=== PATIENT | female | born 1950 | race Caucasian/White ===

== ENCOUNTER 2019-02-08 20:45 | Inpatient (IN) | payer OTHER ==
[~2019-02-08] VITALS: Ht 167.6 cm; Wt 82.0 kg
[~2019-02-08 20:45] MED LIST: ATEN-60 PO; LISI40TA PO; NIFE30TA70 PO; SIMV-8 PO
[2019-02-08] MEDS ORDERED: ONDANSETRON HCL 4 MG/2 ML VIAL IV ONE (21:00)
[2019-02-08] MEDS ORDERED: MORPHINE SULFATE 4 MG/ML SYR/VIAL IV ONE ×2 (21:00→23:00)
[2019-02-08 21:33] LABS: Basophils # (auto) 0.1 uL; Basophils % (auto) 0.8 % (0.0-2.0); Eosinophils # (auto) 0.2 uL; Eosinophils % (auto) 2.2 % (0.0-7.0); Hematocrit 48.9 % (36.0-46.0); Hemoglobin 16.9 g/dL (12.2-16.2); Lymphocytes # (auto) 3.5 uL; Lymphocytes % (auto) 45.7 % (10.0-50.0); Mean Corpuscular Hemoglobin 31.7 pg (28.0-32.0); Mean Corpuscular Hgb Conc. 34.5 g/dL (32.0-36.0); Mean Corpuscular Volume 91.9 fL (80.0-100.0); Monocytes # (auto) 0.4 uL; Monocytes % (auto) 5.6 % (0.0-12.0); Neutrophils # (auto) 3.5 uL; Neutrophils % (auto) 45.7 % (37.0-80.0); Nucleated Red Blood Cells % 0.1 %; Platelet Count (auto) 255 10^3/uL (140-450); Red Blood Cells 5.32 10^6/uL (4.0-5.20); Red Cell Distribution Width 12.9 % (11.8-14.3); White Blood Cell 7.7 10^3/uL (4.4-10.8)
[2019-02-08 21:37] LABS: Albumin 4.4 g/dL (3.4-5.0); BUN/Creatinine Ratio 18.3; Calcium 8.7 mg/dL (8.5-10.1); Potassium 3.2 mmol/L (3.5-5.1)
[2019-02-08 21:42] LABS: Bilirubin, Total 0.5 mg/dL (0.2-1.0); Total Protein 8.4 g/dL (6.4-8.2)
[2019-02-08 21:49] LABS: INR < 0.93 (0.9-1.15); Partial Thromboplastin Time 29.1 sec (23.64-32.05)
[2019-02-08] MEDS ORDERED: NITROGLYCERIN 2% OINT 1GM PKG TD ONE (23:00)
[2019-02-09] VITALS (57 sets, daily range): BP systolic 95–171; BP diastolic 51–92
[2019-02-09] MEDS ORDERED: HEPARIN SODIUM (PORCINE) 5000 UNITS/ML 1ML VIAL IV ONE (01:00)
[2019-02-09] MEDS: HEPARIN DRIP/D5W 100UNITS/ML 250 ML IV SCH (01:29)
[2019-02-09] MEDS ORDERED: DOCUSATE SOD 100 MG CAP PO PRN (01:45)
[2019-02-09] MEDS ORDERED: MORPHINE SULF INJ 2 MG/ML SYRINGE 1ML IV PRN (01:45)
[2019-02-09] MEDS ORDERED: TEMAZEPAM 15 MG CAP PO PRN (01:45)
[2019-02-09] MEDS ORDERED: ONDANSETRON HCL 4 MG/2 ML VIAL IV PRN (01:45)
[2019-02-09 02:09] LABS: BUN/Creatinine Ratio 16.9; Calcium 8.2 mg/dL (8.5-10.1); Potassium 3.5 mmol/L (3.5-5.1)
[2019-02-09] MEDS ORDERED: SODIUM CHLORIDE 0.9% 250 ML IV ONE (02:15)
[2019-02-09] MEDS: SODIUM CHLORIDE 0.9% 1,000 ML IV SCH ×2 (04:27→11:02)
--- NOTE | 2019-02-09 05:12 | NUR ---
REPORT RECEIVED FROM TANIYA CHAVEZ
--- NOTE | 2019-02-09 05:20 | NUR ---
Pt being admitted to ICU MARCIA ZENG admitted to ICU via gurney on nuclear monitoring technician, and portable 02. Patient transferred to bed, connected to ICU monitoring and oxygen, and weighed by bedscale. Patient oriented to Capri Collazo, primary RN, unit, room, bed, and unit policies regarding patient care and visiting hours. All questions and concerns addressed, patient verbalized understanding. NOTE: Patient is on heparin drip @ 6.79 ml/hr infusing in the right AC and NS @ 100ml/hr infusing in the left AC. With intact skin, chest pain scale 3/10 noted as verbalized, nitro patch in the right upper chest noted.VS stable, BP 124/66, HR 63, R 17, SPO2 92%, T 97.6.
--- NOTE | 2019-02-09 05:50 | NUR ---
AMBULATED TO THE TOILET FOR VOIDING. NO DISTRESS OR PAIN NOTED.
--- NOTE | 2019-02-09 06:00 | NUR ---
MRSA SWAB IN THE NARES DONE AND SENT TO LAB
[2019-02-09] MEDS ORDERED: CHOL20007 PO (06:44)
[2019-02-09] MEDS ORDERED: POTA10TA51 PO (06:44)
[2019-02-09] MEDS ORDERED: HYDR-4833 PO (06:44)
[2019-02-09] MEDS ORDERED: LORA-655 PO (06:44)
[2019-02-09] MEDS ORDERED: CALC667C PO (06:44)
[2019-02-09] MEDS ORDERED: ASCOCRY2 OR (06:44)
[2019-02-09] MEDS ORDERED: MAGN400T5 PO (06:44)
[2019-02-09] MEDS ORDERED: AMLO5TAB15 PO (06:44)
[2019-02-09] MEDS ORDERED: ASCO500T11 PO (06:52)
[2019-02-09 07:02] LABS: Urine Bacteria NONE SEEN /hpf (None Seen); Urine Blood Negative /uL (Negative); Urine Specific Gravity 1.013 (1.001-1.035); Urine WBC 4 /hpf (0 - 5)
--- NOTE | 2019-02-09 07:15 | NUR ---
CLOSING NOTES RESTING ON BED WITH NO SIGNS OF DISTRESS. REPORT GIVEN TO COURTNEY CHAVEZ.
--- NOTE | 2019-02-09 07:30 | NUR ---
REPORT REPORT RECEIVED FROM REINIER TYLER RN.
[2019-02-09 07:35] LABS: Basophils # (auto) 0.1 uL; Basophils % (auto) 0.9 % (0.0-2.0); Eosinophils # (auto) 0.1 uL; Eosinophils % (auto) 1.8 % (0.0-7.0); Hematocrit 43.8 % (36.0-46.0); Hemoglobin 14.9 g/dL (12.2-16.2); Lymphocytes % (auto) 40.2 % (10.0-50.0); Mean Corpuscular Hemoglobin 31.4 pg (28.0-32.0); Mean Corpuscular Hgb Conc. 33.9 g/dL (32.0-36.0); Mean Corpuscular Volume 92.7 fL (80.0-100.0); Monocytes # (auto) 0.6 uL; Monocytes % (auto) 7.6 % (0.0-12.0); Neutrophils # (auto) 3.6 uL; Neutrophils % (auto) 49.5 % (37.0-80.0); Nucleated Red Blood Cells % 0.1 %; Platelet Count (auto) 247 10^3/uL (140-450); Red Blood Cells 4.72 10^6/uL (4.0-5.20); White Blood Cell 7.3 10^3/uL (4.4-10.8)
[2019-02-09 07:53] LABS: Partial Thromboplastin Time 39.8 sec (23.64-32.05)
--- NOTE | 2019-02-09 08:30 | NUR ---
ASSESSMENT PT SITTING UP IN BED, WATCHING TV. A/O X4, ABLE TO TURN AND MOVE SELF IN BED. FOLLOWS SIMPLE COMMANDS. LUNGS WITH INSPIRATORY CRACKLES IN THE BASES. O2 AT 2 L/M VIA NC. O2 SAT OF 94%. TELE SB [address] IN LEAD V. NO C/O CHEST PAIN AT THIS TIME. ABD SOFT WITH + BOWEL SOUNDS. LAST BM WAS 8/2. VOIDS AT THE TOILET BUT NO VOID AT THIS TIME. PALPABLE PULSES TO ALL EXTREMITIES WITH NO EDEMA NOTED. NPO FOR POSSIBLE ANGIO TODAY.
--- NOTE | 2019-02-09 09:05 | NUR ---
PAIN PT WITH C/O PAIN TO HER MIDSTERNAL CHEST AND ALSO IN HER SHOULDERS AND LOWER BACK. DOES NOT WANT MORPHINE, "IT DOESN'T WORK FOR ME", AND SO ADMINISTERED NORCO 5/325 WITH A SIP OF WATER. PT ONLY WILLING TO TAKE 1/2 OF THE TABLET AND SO PLACED THE REMAINING 1/2 IN PT CASSETTE IF SHE WANTS IT LATER, OTHERWISE WILL WASTE IT. CONTINUE TO MONITOR.
[2019-02-09] MEDS: HYDROcodone-ACET 5/325MG TAB PO PRN ×3 (09:07→19:25)
--- NOTE | 2019-02-09 09:40 | NUR ---
PTT OF 39.8 AND INCREASED HEPARIN DRIP TO 900 UNITS/HR AND WILL RECHECK PTT IN 6 HOURS.
[2019-02-09] MEDS ORDERED: LIDOCAINE 2%HCL (LOCAL ANESTH.) INJ 20ML MDV ONE (11:51)
[2019-02-09] MEDS ORDERED: IOHEXOL 350 MG/ML 100ML IJ ONE (11:51)
--- NOTE | 2019-02-09 12:10 | NUR ---
[facility] RE[facility] SPOKE WITH JAMMIE, FROM [facility]. I UPDATED HER REGARDING THE PT'S CURRENT CONDITION AND POC INCLUDING PT GOING TO ELEMENTARY ART TEACHER FOR AN ANGIOGRAM THIS AFTERNOON IF PT AGREES.
[2019-02-09 14:05] LABS: Cholesterol 154 mg/dL (< 200)
[2019-02-09 14:07] LABS: HDL Cholesterol 56 mg/dL (40-59); LDL Cholesterol 86 mg/dL (< 100); Triglycerides 82 mg/dL (< 150)
--- NOTE | 2019-02-09 14:57 | NUR ---
PAIN MEDICATED FOR C/O PAIN WITH NORCO 5/325 ONE TABLET.
[2019-02-09] MEDS: METOPROLOL TARTRATE 25 MG TAB PO SCH ×2 (15:57→21:22)
[2019-02-09 16:18] LABS: INR 0.98 (0.9-1.15); Partial Thromboplastin Time 41.6 sec (23.64-32.05)
--- NOTE | 2019-02-09 17:00 | NUR ---
[facility]
[2019-02-09] MEDS: PANTOPRAZOLE 40 MG TAB PO SCH (19:24)
--- NOTE | 2019-02-09 19:30 | NUR ---
Opening Shift Note PT SITTING IN RECLINER CHAIR EATING DINNER WITH FRIEND AT BEDSIDE. ALERT AND ORIENTED TIMES FOUR. ABLE TO WALK AND USE ALL EXTREMITIES. O2 AT 2 LPM NC. 02 SAT 97%. SINUS GABBIE ON BEDSIDE MONITOR WITH HR OF 57. NO COMPLAINS OF PAIN AT THIS TIME. ABD SOFT WITH NORMAL BOWEL SOUNDS. VOIDS IN THE TOILET, CLEAR YELLOW URINE. PALPABLE PULSES TO ALL EXTREMITIES. NPO AT MIDNIGHT FOR LEFT HEART CATH 02/10. CONSENTS SIGNED BY PATIENT THIS RN WITNESSED. CALL LIGHT WITHIN REACH. ALL QUESTIONS AND CONCERNS ADDRESSED. IS AT BEDSIDE.
--- NOTE | 2019-02-09 19:30 | NUR ---
REPORT REPORT GIVEN TO JAYMIE TYLER RN.
[2019-02-09] MEDS: ATORVASTATIN 20 MG TAB PO SCH (21:22)
[2019-02-09 23:30] LABS: INR 0.99 (0.9-1.15); Partial Thromboplastin Time 48.1 sec (23.64-32.05)
[2019-02-10] VITALS (69 sets, daily range): BP systolic 130–192; BP diastolic 59–104
[2019-02-10] MEDS: SODIUM CHLORIDE 0.9% 1,000 ML IV SCH ×3 (00:15→15:30)
--- NOTE | 2019-02-10 00:30 | NUR ---
PTT CAME BACK 48.1. HEPARIN GTT INCREASED BY 200 UNITS/HR PER MD ORDER. WILL RECHECK PTT IN 6 HOURS.
[2019-02-10 06:15] LABS: Basophils # (auto) 0.1 uL; Eosinophils # (auto) 0.2 uL; Eosinophils % (auto) 2.4 % (0.0-7.0); Hemoglobin 16.5 g/dL (12.2-16.2); Lymphocytes # (auto) 3.2 uL; Lymphocytes % (auto) 34.5 % (10.0-50.0); Mean Corpuscular Hemoglobin 31.4 pg (28.0-32.0); Mean Corpuscular Hgb Conc. 34.4 g/dL (32.0-36.0); Mean Corpuscular Volume 91.3 fL (80.0-100.0); Monocytes # (auto) 0.6 uL; Monocytes % (auto) 6.3 % (0.0-12.0); Neutrophils # (auto) 5.1 uL; Neutrophils % (auto) 55.8 % (37.0-80.0); Nucleated Red Blood Cells % 0.1 %; Platelet Count (auto) 254 10^3/uL (140-450); Red Blood Cells 5.26 10^6/uL (4.0-5.20); Red Cell Distribution Width 13.6 % (11.8-14.3); White Blood Cell 9.2 10^3/uL (4.4-10.8)
[2019-02-10 06:31] LABS: INR 0.99 (0.9-1.15)
[2019-02-10 06:36] LABS: Partial Thromboplastin Time 84.6 sec (23.64-32.05)
--- NOTE | 2019-02-10 06:40 | NUR ---
PTT OF 84.6. DECREASED HEPARIN GTT 200 UNITS ACCORDING TO MD ORDER. SEE IV SPREADSHEET FOR DETAILS.
--- NOTE | 2019-02-10 07:24 | NUR ---
REPORT GIVEN TO SCOTT ACOSTA TO ASSUME CARE
--- NOTE | 2019-02-10 07:25 | NUR ---
DR. Hero GARCIA Provider/Hospitalist at bedside. GAVE UPDATE ON PT.
--- NOTE | 2019-02-10 07:50 | NUR ---
ASSESS- PT. LYING IN BED WITH EYES CLOSED, AROUSABLE. ALERT AND ORIENTED TIMES FOUR. DENIES ANY PAIN OR DISCOMFORT AT THIS TIME. NO C/P. LUNGS CLEAR ADELA. INSPIRATORY AND EXPIRATORY. NO SOB ABD. SOFT, FLAT, NON-TENDER. BOWEL SOUNDS ALL FOUR QUADRANTS. NO N/V. VOIDING VIA TOILET WITHOUT DIFFICULTY. RADIAL PULSES STRONG, PALPABLE ADELA. PEDAL PULSES STRONG, PALPABLE ADELA. NO EDEMA. SKIN INTACT. PT. MOVES ALL EXTREMITIES WITHOUT DIFFICULTY, TURNS SELF IN BED. ON HEPARIN GTT. AT 1100 UNITS/HR. NO SIGNS OF BLEEDING. PT. IS NPO FOR POSSIBLE LHC TODAY PER DR. GONZÁLES.
[2019-02-10] MEDS ORDERED: NITROGLYCERIN 0.4 MG SL TAB SL ONE (08:56)
--- NOTE | 2019-02-10 08:58 | NUR ---
PT. REPORTING CHEST DISCOMFORT 8 ON A SCALE OF 0-10, NON-RADIATING. NO SOB. SAID THE MORPHINE DID NOT HELP THAT LAST NIGHT WHEN GIVEN. MED. PT. WITH NTG. 0.4 MG. SL.
--- NOTE | 2019-02-10 09:03 | NUR ---
NO LONGER HAVING ANY C/P OR DISCOMFORT.
[2019-02-10] MEDS: ASPirin-EC 81 mg tab PO SCH (09:24)
[2019-02-10] MEDS: PANTOPRAZOLE 40 MG TAB PO SCH (09:24)
[2019-02-10] MEDS: METOPROLOL TARTRATE 25 MG TAB PO SCH ×2 (09:34→22:00)
--- NOTE | 2019-02-10 12:40 | NUR ---
[facility] CALLED. GAVE UPDATE ON PT.
[2019-02-10 13:07] LABS: INR 0.97 (0.9-1.15); Partial Thromboplastin Time 57.9 sec (23.64-32.05)
--- NOTE | 2019-02-10 13:20 | NUR ---
PTT 57.9. NO BOLUS, NO CHANGE IN DOSE ON HEPARIN GTT. CONTINUE AT 1100 UNITS/HR.
[2019-02-10] MEDS: HYDROcodone-ACET 5/325MG TAB PO PRN ×2 (13:44→22:07)
--- NOTE | 2019-02-10 13:45 | NUR ---
PT. REPORTING BACK AND HIP PAIN 5 ON A SCALE OF 0-10. MED. WITH NORCO 5MG. PO.
--- NOTE | 2019-02-10 14:30 | NUR ---
VISITOR AT THE BS.
--- NOTE | 2019-02-10 14:40 | NUR ---
PT. NO LONGER HAVING ANY PAIN OR DISCOMFORT. SITTING UP IN CHAIR IN RM.
--- NOTE | 2019-02-10 16:55 | NUR ---
NEW ORDER RECEIVED BY DR. GONZÁLES FOR [facility] ON 02/11 AT 8AM. NOTIFIED SCOTT H[employer] VAN TRUCK DRIVER TO PLACE PT. ON SCHEDULE. PT. WILL BE NPO AFTER MIDNIGHT TONIGHT. ORDERED DINNER TRAY FOR PT. INFORMED PT. OF SCHEDULED DATE/TIME FOR [facility].
[2019-02-10 18:32] LABS: Partial Thromboplastin Time 63.5 sec (23.64-32.05)
--- NOTE | 2019-02-10 19:07 | NUR ---
PT. REPORTING C/P NON-RADIATING 9 ON A SCALE OF 0-10. SBP 191. MED. PT. WITH NTG. 0.4 MG. SL.
[2019-02-10] MEDS: NITROGLYCERIN 0.4 MG SL TAB SL PRN (19:12)
--- NOTE | 2019-02-10 19:30 | NUR ---
OPENING SHIFT NOTE RECEIVED REPORT FROM DAY SHIFT RN. POC REVIEWED. PT SITTING IN CHAIR EATING DINNER. NPO AFTER MIDNIGHT PLAN FOR [facility] IN AM WITH ELIECER. CONSENTS SIGNED AND IN CHART. PT AWARE OF PLAN. ALERT AND ORIENTED TIMES FOUR. ABLE TO GET UP TO ROOM TOILET AND TURN SELF IN BED. INSTRUCTED PT TO CALL FOR ASSISTANCE. PT VERBALIZED UNDERSTANDING. ALL ALARMS ON AND AUDIBLE. FULL ASSESSMENT DONE SEE INTERVENTIONS. ALL QUESTIONS AND CONCERNS ADDRESSED. PT IN FULL VIEW OF RN. CALL LIGHT WITHIN REACH.
--- NOTE | 2019-02-10 21:50 | NUR ---
PT STATES SHE IS HAVING SOME ANXIETY AND TAKES LORAZEPAM AT HOME AND IS REQUESTING SOMETHING FOR ANXIETY. HOSPITALIST PAGED AT THIS TIME AND RECEIVED NEW ORDER. WILL CARRY OUT THROUGH [facility].
[2019-02-10] MEDS: ATORVASTATIN 20 MG TAB PO SCH (22:00)
[2019-02-10] MEDS ORDERED: LORazepam 0.5 MG TAB PO PRN (22:00)
[2019-02-10] MEDS ORDERED: LORazepam 0.5 MG TAB ONE (22:03)
[2019-02-11] VITALS (68 sets, daily range): BP systolic 96–188; BP diastolic 43–118
[2019-02-11 00:37] LABS: Basophils # (auto) 0.1 uL; Basophils % (auto) 1.1 % (0.0-2.0); Eosinophils # (auto) 0.2 uL; Eosinophils % (auto) 1.4 % (0.0-7.0); Hematocrit 48.5 % (36.0-46.0); Hemoglobin 16.3 g/dL (12.2-16.2); Lymphocytes # (auto) 3.6 uL; Lymphocytes % (auto) 32.5 % (10.0-50.0); Mean Corpuscular Hemoglobin 31.6 pg (28.0-32.0); Mean Corpuscular Hgb Conc. 33.7 g/dL (32.0-36.0); Mean Corpuscular Volume 93.8 fL (80.0-100.0); Monocytes # (auto) 0.8 uL; Monocytes % (auto) 6.9 % (0.0-12.0); Neutrophils # (auto) 6.5 uL; Neutrophils % (auto) 58.1 % (37.0-80.0); Nucleated Red Blood Cells % 0.1 %; Platelet Count (auto) 245 10^3/uL (140-450); Red Blood Cells 5.18 10^6/uL (4.0-5.20); Red Cell Distribution Width 13.4 % (11.8-14.3); White Blood Cell 11.1 10^3/uL (4.4-10.8)
--- NOTE | 2019-02-11 00:45 | NUR ---
PTT OF 56.1. NO BOLUS AND NO CHANGE TO HEPARIN GTT. RUNNING AT 1100 UNITS/HR.
[2019-02-11 00:52] LABS: INR 0.98 (0.9-1.15); Partial Thromboplastin Time 56.1 sec (23.64-32.05)
[2019-02-11 00:55] LABS: BUN/Creatinine Ratio 17.5; Calcium 8.6 mg/dL (8.5-10.1); Potassium 3.2 mmol/L (3.5-5.1)
[2019-02-11] MEDS: SODIUM CHLORIDE 0.9% 1,000 ML IV SCH (01:00)
--- NOTE | 2019-02-11 01:00 | NUR ---
REPORT GIVEN TO SCOTT JAFFE TO ASSUME CARE
--- NOTE | 2019-02-11 01:38 | NUR ---
Resume care of Pt, Pt awake and alert. Breathing even and nonlabored, RA, no s/s of distress or pain. Pt ambulated back from the toilet. Stable gait, back to bed by self. 20G IV an both AC veins, dry and intact. Bed in low position, call light within reach, fall and safety position in place, all alarms are audible. Instruct on POC and to call for help if needed, will continue to monitor q 1hr and PRN.
[2019-02-11] MEDS: HEPARIN DRIP/D5W 100UNITS/ML 250 ML IV SCH (01:45)
--- NOTE | 2019-02-11 01:45 | NUR ---
Chest pain Pt c/o pressure chest pain at the medial chest and back after came back from using the restroom. v/s, EKG, other conditions stable. NTG given to Pt, will continue to monitor.
[2019-02-11] MEDS: NITROGLYCERIN 0.4 MG SL TAB SL PRN (01:50)
--- NOTE | 2019-02-11 05:50 | NUR ---
Patient bathe/linen change Patient given bath with CHG wipes for LHC preparation. Skin integrity assessed for any changes, intact skin. Complete linens changed. Patient tolerated well, stable gait, no chest pain. Both pedals pulses checked, normal pulses.
[2019-02-11] MEDS ORDERED: fentaNYL CITRATE 100 MCG/2 ML VL ONE (07:33)
[2019-02-11] MEDS ORDERED: ANGIOMAX 250 MG VIAL IV ONE (07:33)
[2019-02-11] MEDS ORDERED: LIDOCAINE 2%HCL (LOCAL ANESTH.) INJ 20ML MDV ONE (07:34)
[2019-02-11] MEDS ORDERED: MIDAZOLAM HCL 1MG/1ML-2 ML VIAL ONE (07:34)
[2019-02-11] MEDS ORDERED: SODIUM CHL 0.9% 50 ML ONE (07:34)
[2019-02-11] MEDS ORDERED: IOHEXOL 350 MG/ML 100ML IJ ONE ×2 (07:35→09:11)
--- NOTE | 2019-02-11 08:14 | NUR ---
OPENING SHIFT NOTE 0720: Report received from horticultural worker RN, morning assessment performed and documented. Patient alert and oriented x4, no distress noted, respirations even and unlabored. Patient currently on room air and vss and documented. Discussed plan of care with patient and pending heart catheter, patient verbalized understanding. Patient denies pain or discomfort at this time. Patient also aware of NPO status. Bilateral AC IV's patent (see IV spreadsheet for medication infusion) patient denies pain or discomfort to IV sites. Discussed fall and safety precautions in patient, especially when ambulating to bedside toilet, patient verbalized understanding. 0742: Patient off floor via gurney and portable monitor accompanied by lab clerk staff. Patient A/O x4, no distress noted, respirations even and unlabored. Patient waived to horticultural worker RN and in good spirits smiling. Awaiting return to floor. Melvina lab clerk RN aware of Heparin currently running. 0746: Hospitalist Dr. Douglas at bedside, notified that patient was taken to lab clerk for scheduled left heart catheterization. Dr. Douglas requesting nurse to call him once procedure is complete with Dr. Zavala's recommendations and possible authorization for discharge.
[2019-02-11] MEDS ORDERED: ASPirin 81 mg TAB ONE (09:48)
[2019-02-11] MEDS ORDERED: CLOPIDOGREL 300 MG TAB ONE (09:48)
--- NOTE | 2019-02-11 09:57 | NUR ---
I faxed clinical information to [facility] including today's MD progress notes, current xrays, labs, vitals and medication list.
--- NOTE | 2019-02-11 10:05 | NUR ---
PATIENT RETURN TO FLOOR 0956: REPORT RECEIVED FROM X RAY CONSULTANT - HEPARIN HAS BEEN DISCONTINUED, PLAVIX AND ASPIRIN ALREADY GIVEN WITH ANGIOCELE. PATIENT TO KEEP LEG STRAIGHT FOR 2 HOURS, NURSE REPORTED "95% OCCLUSION OF RCA - PLASTY ALL RCA WITH TWO STENTS PLACED IN SAME REGION. X RAY CONSULTANT RN RETURNED TO NOTIFY NURSE THAT PATIENT REPORTED CHEST PAIN 4 TIMES WHILE IN X RAY CONSULTANT AND NITROGLYCERIN WAS ADMINISTERED PER DR GONZÁLES'S ORDERS. 1005: PATIENT RETURN TO FLOOR CONNECTED TO BEDSIDE MONITOR, ALERT AND ORIENTED X4, FATIGUED AND REPORTING CHEST DISCOMFORT 4/10 "BUT TOLERABLE". PATIENT AWARE TO MAINTAIN LEG STRAIGHT UNTIL NOON. CALL LIGHT WITHIN REACH, PATIENT PLACED IN REVERSE TRENDELENBERG DUE TO FEELING NAUSEOUS. FALL AND SAFETY PRECAUTIONS IN PLACE.
--- NOTE | 2019-02-11 10:22 | NUR ---
assessment Patient has no post discharge needs at this time. Addendum: 02/13/19 at 1022 by Ivanna HERRERA Amended: Links added.
[2019-02-11] MEDS: ASPirin-EC 81 mg tab PO SCH (10:30)
--- NOTE | 2019-02-11 10:57 | NUR ---
CONTACT HOSPITALIST SPOKE WITH DR GARCIA, PROVIDED PATIENT UPDATE AND HEART CATH RESULTS WELL MORNING LAB VALUES. ORDERS FOR POTASSIUM REPLACEMENT RECEIVED. DR GARCIA REQUESTING THIS NURSE ASK DR GONZÁLES IF PATIENT CAN BE DISCHARGED HOME BECAUSE [facility] IS ASKING LATER THIS AFTERNOON AND CALL HIM BACK WITH RESULTS.
--- NOTE | 2019-02-11 11:14 | NUR ---
DECREASE IN CHEST DISCOMFORT PATIENT LEFT GROIN ASSESSED, SOFT TO TOUCH, DRESSING CLEAN, DRY AND INTACT. PATIENT REPORTING DECREASE IN CHEST DISCOMFORT 2-09/16. WILL CONTINUE TO MONITOR.
[2019-02-11] MEDS ORDERED: POTASSIUM CHL 20 Meq TABLET PO ONE (11:15)
--- NOTE | 2019-02-11 11:27 | NUR ---
CALL RECEIVED FROM [facility] REVIEW UPDATED ON PATIENT'S STATUS, PROCEDURE AND CURRENT VITAL SIGNS.
[2019-02-11] MEDS: HYDROcodone-ACET 5/325MG TAB PO PRN ×2 (11:42→18:30)
[2019-02-11] MEDS: PANTOPRAZOLE 40 MG TAB PO SCH (11:43)
[2019-02-11] MEDS: METOPROLOL TARTRATE 25 MG TAB PO SCH ×2 (11:44→22:08)
[2019-02-11] MEDS ORDERED: CLOPIDOGREL BISULFATE 75 MG TAB PO ONE (15:00)
--- NOTE | 2019-02-11 15:47 | NUR ---
DR GONZÁLES AT BEDSIDE UPDATED ON PATIENT'S STATUS, VITAL SIGNS AND DR GARCIA'S ORDERS TO DISCHARGE OR DOWNGRADE TO TELE. ORDERS FOR IMDUR 30 MG PO DAILY AND DISCONTINUE FLUIDS AND TRANSFER TO TELE, NO DISCHARGE TODAY - WILL MONITOR. DR GONZÁLES DISCUSSED FINDINGS WITH PATIENT, PATIENT VERBALIZED UNDERSTANDING.
--- NOTE | 2019-02-11 19:30 | NUR ---
Opening Shift Note Assumed care of patient, awake and alert sitting in the recliner chair. No S/S of distress/SOB or pain. VS stable. Patient had Left Heart cath today. Right groin checked - dressing dry and intact, no ecchymosis,hematoma or redness seen. IV line at left and right AC saline flushed. Full assessment done -refer interventions. Instructed on POC and to call for assist PRN, will continue to monitor for changes Q1hr and PRN.
--- NOTE | 2019-02-11 21:00 | NUR ---
NO TELE BED AVAILABLE INFORMED PATIENT THAT THERE IS STILL NO TELEMETRY BED AVAILABLE OF THE MOMENT. PATIENT VERBALIZES UNDERSTANDING
[2019-02-11] MEDS: ATORVASTATIN 20 MG TAB PO SCH (22:06)
--- NOTE | 2019-02-11 22:15 | NUR ---
ROUNDING PATIENT IS BACK ON BED, RESTING. AROUSABLE TO CALL. ORAL MEDICATION ADMINISTERED,INDICATION EXPLAINED.
[2019-02-12] VITALS (14 sets, daily range): BP systolic 126–153; BP diastolic 60–89
--- NOTE | 2019-02-12 00:05 | NUR ---
ROUNDING PATIENT SEEN RESTING COMFORTABLY, VS STABLE. WILL CONTINUE TO MONITOR
--- NOTE | 2019-02-12 04:30 | NUR ---
ROUNDING PATIENT IS AWAKE NOW. VERBALIZED THAT SHE USED THE TOILET TO URINATE. NO COMPLAINS OF PAIN/DISCOMFORT NOTED. VS STABLE. WILL CONTINUE TO MONITOR
--- NOTE | 2019-02-12 06:20 | NUR ---
ROUNDING PATIENT RESTING ON BED. VS STABLE. RIGHT GROIN CHECKED - NO BLEEDING,ECCHYMOSIS OR HEMATOMA NOTED. PATIENT SAID SHE WILL USE THE TOILET IN AWHILE
[2019-02-12 07:23] LABS: Basophils # (auto) 0.1 uL; Eosinophils # (auto) 0.1 uL; Eosinophils % (auto) 1.3 % (0.0-7.0); Hematocrit 46.1 % (36.0-46.0); Hemoglobin 15.9 g/dL (12.2-16.2); Lymphocytes # (auto) 2.1 uL; Lymphocytes % (auto) 27.8 % (10.0-50.0); Mean Corpuscular Hemoglobin 31.6 pg (28.0-32.0); Mean Corpuscular Hgb Conc. 34.4 g/dL (32.0-36.0); Mean Corpuscular Volume 91.8 fL (80.0-100.0); Monocytes # (auto) 0.5 uL; Monocytes % (auto) 6.4 % (0.0-12.0); Neutrophils # (auto) 4.8 uL; Neutrophils % (auto) 63.5 % (37.0-80.0); Platelet Count (auto) 245 10^3/uL (140-450); Red Blood Cells 5.02 10^6/uL (4.0-5.20); Red Cell Distribution Width 13.2 % (11.8-14.3); White Blood Cell 7.5 10^3/uL (4.4-10.8)
[2019-02-12 07:43] LABS: BUN/Creatinine Ratio 16.7; Calcium 8.9 mg/dL (8.5-10.1); Potassium 3.3 mmol/L (3.5-5.1)
[2019-02-12] MEDS: HYDROcodone-ACET 5/325MG TAB PO PRN (08:13)
[2019-02-12] MEDS ORDERED: POTASSIUM CHL 20 Meq TABLET PO ONE (09:00)
[2019-02-12] MEDS ORDERED: ISOSORBIDE MONONITRATE ER 60 MG TAB PO SCH (10:00)
[2019-02-12] MEDS ORDERED: CLOPIDOGREL BISULFATE 75 MG TAB PO SCH (10:00)
[2019-02-12] MEDS: PANTOPRAZOLE 40 MG TAB PO SCH (10:26)
[2019-02-12] MEDS: ASPirin-EC 81 mg tab PO SCH (10:26)
[2019-02-12] MEDS: METOPROLOL TARTRATE 25 MG TAB PO SCH (10:27)
--- NOTE | 2019-02-12 14:55 | NUR ---
Discharge instructions given as ordered. Encourage to follow up with PMD as instructed THROUGH [facility] IN 7 DAYS. All questions and concerns addressed. Patient verbalized understanding. Medication reconciliation form completed and copy given to patient. IV removed with catheter intact, FROM LEFT AND RIGHT ARM pressure dressing applied, montes catheter removed. Patient taken to vehicle via wheelchair with all personal belongings, accompanied by staff and family member. No distress noted at time of departure.
== END 2019-02-12 14:49 | disposition home or self-care (01) | DRG 247 ==
LOC: EDBD 20:45 → ER 20:45 → TELE 20:46 → ICU WEST 02-09 05:25
PROVIDERS: ADMIT Nurse Practitioner Family; ATTEND Family Medicine
PROC: 027035Z Dilation of Coronary Artery, One Artery with Two Drug-eluting Intraluminal Devices, Percutaneous Approach (ICD-10-PCS; principal; 2019-02-11)
PROC: 4A023N7 Measurement of Cardiac Sampling and Pressure, Left Heart, Percutaneous Approach (ICD-10-PCS; 2019-02-11)
PROC: B2131ZZ Fluoroscopy of Multiple Coronary Artery Bypass Grafts using Low Osmolar Contrast (ICD-10-PCS; 2019-02-11)
PROC: B2181ZZ Fluoroscopy of Left Internal Mammary Bypass Graft using Low Osmolar Contrast (ICD-10-PCS; 2019-02-11)
PROC: B2111ZZ Fluoroscopy of Multiple Coronary Arteries using Low Osmolar Contrast (ICD-10-PCS; 2019-02-11)
PROC: 4A033BC Measurement of Arterial Pressure, Coronary, Percutaneous Approach (ICD-10-PCS; 2019-02-11)
DX: I21.4 Non-ST elevation (NSTEMI) myocardial infarction (principal); E87.6 Hypokalemia; E78.5 Hyperlipidemia, unspecified; I11.9 Hypertensive heart disease without heart failure; I25.2 Old myocardial infarction; E78.00 Pure hypercholesterolemia, unspecified; F41.9 Anxiety disorder, unspecified; Z95.1 Presence of aortocoronary bypass graft; Z88.1 Allergy status to other antibiotic agents; Z88.0 Allergy status to penicillin; Z88.8 Allergy status to other drugs, medicaments and biological substances; Z82.49 Family history of ischemic heart disease and other diseases of the circulatory system
CPT/HCPCS: 36415; 71045; 80048; 80053; 80061; 81001; 83735; 83880; 84443; 84484; 85025; 85610; 85730; 86850; 86900; 86901; 87081; 92928; 93005; 93459; 96374; 96375; 96376; 99152; 99153; C1874; C1887; G0378; J2250; J2405

== ENCOUNTER 2019-09-12 21:36 | Inpatient (IN) | payer OTHER ==
[~2019-09-12] VITALS: Ht 165.1 cm; Wt 77.1 kg
[~2019-09-12 21:36] MED LIST changes: +AMLO5TAB15 PO; +ASCO500T11 PO; +CALC667C PO; +CHOL20007 PO; +HYDR-4833 PO; +LORA-655 PO; +MAGN400T40 PO; -NIFE30TA70 PO; +POTA10TA51 PO
[2019-09-12 22:07] LABS: Basophils # (auto) 0.1 10 ^3/uL (0-0.2); Eosinophils # (auto) 0.2 10 ^3/uL (0-0.8); Eosinophils % (auto) 2.1 % (0.0-7.0); Hematocrit 47.4 % (36.0-46.0); Hemoglobin 16.2 g/dL (12.2-16.2); Lymphocytes # (auto) 1.9 10 ^3/uL (0.4-5.4); Lymphocytes % (auto) 23.3 % (10.0-50.0); Mean Corpuscular Hgb Conc. 34.2 g/dL (32.0-36.0); Mean Corpuscular Volume 93.6 fL (80.0-100.0); Monocytes # (auto) 0.5 10 ^3/uL (0-1.3); Monocytes % (auto) 5.9 % (0.0-12.0); Neutrophils # (auto) 5.4 10 ^3/uL (1.6-8.6); Neutrophils % (auto) 67.7 % (37.0-80.0); Platelet Count (auto) 262 10^3/uL (140-450); Red Blood Cells 5.07 10^6/uL (4.0-5.20); Red Cell Distribution Width 13.6 % (11.8-14.3)
[2019-09-12 22:23] LABS: Albumin 4.3 g/dL (3.4-5.0); Potassium 3.5 mmol/L (3.5-5.1)
[2019-09-12 22:26] LABS: BUN/Creatinine Ratio 15.9; Bilirubin, Total 0.6 mg/dL (0.2-1.0); Total Protein 8.3 g/dL (6.4-8.2)
[2019-09-13] MEDS ORDERED: ONDANSETRON HCL 4 MG/2 ML VIAL IV ONE
[2019-09-13] MEDS ORDERED: MORPHINE SULFATE 4 MG/ML SYR/VIAL IV ONE
[2019-09-13 00:24] LABS: INR 0.95 (0.9-1.15); Partial Thromboplastin Time 29.3 sec (23.64-32.05)
[2019-09-13 00:32] LABS: Magnesium 2.2 mg/dL (1.6-2.6)
[2019-09-13 00:52] LABS: Amylase 47 U/L (25-115); Lipase 169 U/L (73-393)
[2019-09-13] MEDS ORDERED: ENOXAPARIN SOD 100 MG/1 ML SYRINGE SC ONE (02:00)
[2019-09-13] MEDS ORDERED: HYDROcodone-ACET 5/325MG TAB PO ONE (04:15)
[2019-09-13] MEDS ORDERED: ACETAMINOPHEN 325 MG TAB PO PRN (05:15)
[2019-09-13] MEDS ORDERED: ATORVASTATIN 20 MG TAB PO ONE ×2 (05:15→05:45)
[2019-09-13] MEDS: SODIUM CHLORIDE 0.9% 1,000 ML IV SCH ×3 (05:15→21:22)
[2019-09-13] MEDS ORDERED: ONDANSETRON HCL 4 MG/2 ML VIAL IV PRN (05:15)
[2019-09-13] MEDS ORDERED: TEMAZEPAM 15 MG CAP PO PRN (05:15)
[2019-09-13] MEDS ORDERED: hydrALAZINE HCL 20 MG/ML VL IV PRN (05:15)
[2019-09-13] MEDS ORDERED: MORPHINE SULF INJ 2 MG/ML SYRINGE 1ML IV PRN (05:30)
[2019-09-13] MEDS ORDERED: NITROGLYCERIN 0.4 MG SL TAB SL PRN (05:30)
[2019-09-13] MEDS ORDERED: IOHEXOL 350 MG/ML 100ML IJ ONE (05:32)
--- NOTE | 2019-09-13 06:44 | NUR ---
TELE ADMIT FROM ER pt arrived via wheelchair, awake alert and oriented x4. pt on room air no distress noted or expressed. pt oriented to room, use of call light, rest room, this nurse and bed controls. pt updated on plan of care, all concerns addressed to this point. pt reports pain 3/0-10 scale "right now its just my neck and my back", pt denies any chest pain. pt reports pain is tolerable and does not request medication at this time. pt encouraged by nurse to call as needed.
--- NOTE | 2019-09-13 07:30 | NUR ---
OPENING NOTE ASSUMED CARE OF PT. ALERT AND ORIENTED. NO S/S OF SOB/DISTRESS NOTED. SAFETY PRECAUTIONS IN PLACE. BED SET TO LOWEST POSITION/LOCKED, BEDSIDE RAIL UP X2, CALL LIGHT WITHIN REACH. INSTRUCTED PT TO CALL FOR ASSISTANCE. UPDATED ON POC. PT VERBALIZED UNDERSTANDING. WILL CONTINUE TO MONITOR Q1HR AND PRN.
[2019-09-13] MEDS: ENOXAPARIN SOD 100 MG/1 ML SYRINGE SC SCH ×2 (09:32→21:22)
[2019-09-13] MEDS: LISINOPRIL 20 MG TAB PO SCH ×2 (09:33→21:22)
[2019-09-13] MEDS: ASPirin 81 mg TAB PO SCH (09:33)
[2019-09-13] MEDS: amLODIPine BESYLATE 5 MG TAB PO SCH (09:33)
[2019-09-13] MEDS: ATENOLOL 25 MG TAB PO SCH ×2 (09:34→21:21)
[2019-09-13] MEDS ORDERED: CLOP75TA28 PO (09:37)
[2019-09-13] MEDS ORDERED: FAMOTIDINE 20 MG TAB PO SCH (10:00)
[2019-09-13 13:00] VITALS: BP 140/76
[2019-09-13] MEDS ORDERED: HYOSCYAMINE SULF 0.125 MG ODT TAB PO PRN (16:30)
[2019-09-13 16:44] VITALS: BP 153/82
[2019-09-13] MEDS: HYDROcodone-ACET 5/325MG TAB PO PRN (17:25)
--- NOTE | 2019-09-13 20:30 | NUR ---
Opening Shift Note Pt is sitting up at the bedside with no complaints at this time. POC discussed with pt and pt verbalizes understanding. Bed is low, wheels are locked. and call light is with in reach.
[2019-09-13] MEDS: ATORVASTATIN 20 MG TAB PO SCH (21:20)
[2019-09-13] MEDS: PANTOPRAZOLE 40 MG TAB PO SCH (21:20)
[2019-09-13 21:52] VITALS: BP 144/71
[2019-09-13] MEDS ORDERED: ATORVASTATIN 20 MG TAB PO SCH (22:00)
[2019-09-14 02:00] VITALS: BP 128/58
[2019-09-14] MEDS ORDERED: CLOPIDOGREL BISULFATE 75 MG TAB PO ONE (02:15)
--- NOTE | 2019-09-14 02:15 | NUR ---
Dr Arreola called to discuss POC for pt and new orders received at this time. See written orders for Trponin levels q 8hrs x3, Plavix 75mg PO daily and give 1st dose now, Adenosine Cardiolite Stress test 09/16/19 and NPO after midnight 09/16/19. KARLA. Addendum: 09/14/19 at 0314 by WILLIAMS DRAPER RN Troponin levels until they peak.
--- NOTE | 2019-09-14 03:38 | NUR ---
Critical Lab value; Troponin level 2.[address] Zavala land acquisition manager for Dr Arreola and notified at this time. Awaiting orders.
[2019-09-14] MEDS: HYDROcodone-ACET 5/325MG TAB PO PRN ×2 (04:45→17:05)
--- NOTE | 2019-09-14 04:45 | NUR ---
Pt asking for [place] and states that she has pain 5/10. Pt reports thather pain is in the back of her head radiating down her neck. She further states that she has hip pain.
[2019-09-14 05:03] VITALS: BP 140/71
--- NOTE | 2019-09-14 05:45 | NUR ---
pt states that her pain is now 0/10.
--- NOTE | 2019-09-14 07:00 | NUR ---
PATIENT AWAKE, ALERT AND ORIENTED, UNLABORED BREATHING. DENIES DISCOMFORT. IV ON THE LEFT AC PATENT, BLOOD WAS RETURNING, SO I FLUSHED IT AND WORKS PROPERLY. POC EXPLAINED TO PATIENT, BED ON LOWEST POSITION, CALL LIGHT WITH IN REACH.
[2019-09-14 07:23] LABS: Basophils # (auto) 0.1 10 ^3/uL (0-0.2); Basophils % (auto) 1.2 % (0.0-2.0); Eosinophils # (auto) 0.1 10 ^3/uL (0-0.8); Eosinophils % (auto) 2.1 % (0.0-7.0); Hematocrit 43.4 % (36.0-46.0); Hemoglobin 15.1 g/dL (12.2-16.2); Lymphocytes # (auto) 2.4 10 ^3/uL (0.4-5.4); Lymphocytes % (auto) 36.3 % (10.0-50.0); Mean Corpuscular Hemoglobin 32.3 pg (28.0-32.0); Mean Corpuscular Hgb Conc. 34.7 g/dL (32.0-36.0); Mean Corpuscular Volume 93.1 fL (80.0-100.0); Monocytes # (auto) 0.4 10 ^3/uL (0-1.3); Monocytes % (auto) 6.6 % (0.0-12.0); Neutrophils # (auto) 3.5 10 ^3/uL (1.6-8.6); Neutrophils % (auto) 53.8 % (37.0-80.0); Platelet Count (auto) 240 10^3/uL (140-450); Red Blood Cells 4.66 10^6/uL (4.0-5.20); Red Cell Distribution Width 13.7 % (11.8-14.3); White Blood Cell 6.5 10^3/uL (4.4-10.8)
[2019-09-14 07:44] LABS: BUN/Creatinine Ratio 23.2; Calcium 8.7 mg/dL (8.5-10.1); Potassium 3.9 mmol/L (3.5-5.1)
[2019-09-14] MEDS: PANTOPRAZOLE 40 MG TAB PO SCH ×2 (08:50→22:38)
[2019-09-14] MEDS: ENOXAPARIN SOD 100 MG/1 ML SYRINGE SC SCH ×2 (08:50→22:40)
[2019-09-14] MEDS: ATENOLOL 25 MG TAB PO SCH ×2 (08:51→21:50)
[2019-09-14] MEDS: ASPirin 81 mg TAB PO SCH (08:52)
[2019-09-14] MEDS: LISINOPRIL 20 MG TAB PO SCH ×2 (08:53→22:39)
[2019-09-14] MEDS: amLODIPine BESYLATE 5 MG TAB PO SCH (08:53)
[2019-09-14] MEDS: CLOPIDOGREL BISULFATE 75 MG TAB PO SCH (08:54)
[2019-09-14 09:00] VITALS: BP 144/69
--- NOTE | 2019-09-14 09:50 | NUR ---
DR GARCIA SAW THE PATIENT, WENT OVER THE PLAN OF CARE WITH THE PATIENT. PATIENT WELL AWARE OF HER DISEASE PROCESS, AND PLAN OF CARE.
--- NOTE | 2019-09-14 12:12 | NUR ---
DR SAENZ SAW PATIENT, NEW ORDERS PLACED BY DR SAENZ.
[2019-09-14 13:00] VITALS: BP 153/74
[2019-09-14 17:00] VITALS: BP 180/76
--- NOTE | 2019-09-14 19:45 | NUR ---
Opening Shift Note Pt is sitting up in bed awake and alert x4. Pt denies any pain or SOB at this time and no s/s of any distress noted. POC discussed with pt and pt verbalizes understanding. Bed is low, wheels are locked, and call light is with in reach.
[2019-09-14] MEDS: SODIUM CHLORIDE 0.9% 1,000 ML IV SCH (21:15)
[2019-09-14 22:00] VITALS: BP 145/76
[2019-09-14] MEDS: ATORVASTATIN 20 MG TAB PO SCH (22:37)
[2019-09-15] MEDS: HYDROcodone-ACET 5/325MG TAB PO PRN ×2 (04:44→16:06)
--- NOTE | 2019-09-15 04:44 | NUR ---
Pt c/o neck and back pain and rates pain 5/10. [place] given per orders.
[2019-09-15 05:40] VITALS: BP 154/74
--- NOTE | 2019-09-15 05:44 | NUR ---
Pt states she has no pain and rates her pain 0/10.
--- NOTE | 2019-09-15 07:22 | NUR ---
Opening Shift Note: Assumed care of patient, awake and alert. No S/S of distress/SOB or pain. Patient states pain level 0/10 at this time. Bed in lowest locked position, side rails up x2, call light within reach. Patient instructed on POC and to call for assist PRN, will continue to monitor for changes Q1hr and PRN.
[2019-09-15 09:00] VITALS: BP 142/71
[2019-09-15] MEDS: ASPirin 81 mg TAB PO SCH (09:23)
[2019-09-15] MEDS: PANTOPRAZOLE 40 MG TAB PO SCH ×2 (09:23→21:53)
[2019-09-15] MEDS: amLODIPine BESYLATE 5 MG TAB PO SCH (09:23)
[2019-09-15] MEDS: LISINOPRIL 20 MG TAB PO SCH ×2 (09:23→21:54)
[2019-09-15] MEDS: ENOXAPARIN SOD 100 MG/1 ML SYRINGE SC SCH ×2 (09:24→21:54)
[2019-09-15] MEDS: ATENOLOL 25 MG TAB PO SCH ×2 (09:24→21:53)
[2019-09-15] MEDS: CLOPIDOGREL BISULFATE 75 MG TAB PO SCH (09:26)
[2019-09-15] MEDS: SODIUM CHLORIDE 0.9% 1,000 ML IV SCH ×2 (10:35→23:55)
--- NOTE | 2019-09-15 10:47 | NUR ---
DR. JACKSON: DR. GARCIA AT BEDSIDE. DISCUSSED POC WITH PATIENT. PATIENT VERBALLY AGREED.
[2019-09-15 13:00] VITALS: BP 168/76
--- NOTE | 2019-09-15 16:07 | NUR ---
PAIN PATIENT REQUESTED NORCO FOR PAIN OF 6/10. PATIENT STATES PAIN IS "IN SHOULDERS, BACK AND HIP." WILL REASSESS PAIN AT APPROPRIATE TIME.
[2019-09-15 17:00] VITALS: BP 142/73
--- NOTE | 2019-09-15 17:07 | NUR ---
PAIN REASSESSMENT PATIENT STATES PAIN LEVEL 0/10 AT THIS TIME
--- NOTE | 2019-09-15 17:25 | NUR ---
IV insertion: IV access obtained, via clean sterile technique by inserting 20 gauge catheter at right wrist after 1 attempt. IV secured properly. No trauma to site. Patient tolerated well. IV removal: Left AC IV DC'd with clean sterile technique, catheter fully intact. Pressure dressing applied to site. Patient tolerated well.
--- NOTE | 2019-09-15 19:32 | NUR ---
CLOSING NOTE: PATIENT RESTING IN BED. NO S/S OF PAIN, SOB OR DISTRESS AT THIS TIME. CONSENTS PRINTED FOR PROCEDURE. AWAITING PATIENT SIGNATURE. NOC RN AWARE. CARE ENDORSED TO NOC RN.
--- NOTE | 2019-09-15 19:33 | NUR ---
Opening Shift Note Received report and assumed care of patient. Patient is awake and alert. No signs or symptoms of distress noted. Instructed patient on plan of care and to call for assistance as needed. Will continue to monitor.
[2019-09-15] MEDS: ATORVASTATIN 20 MG TAB PO SCH (21:53)
[2019-09-15 22:00] VITALS: BP 156/85
[2019-09-16] MEDS ORDERED: hydrALAZINE HCL 20 MG/ML VL IV ONE (00:45)
--- NOTE | 2019-09-16 00:50 | NUR ---
Elevated blood pressure Patient blood pressure 172/67 after administration of blood pressure medications. Paged hospitalist. New order for hydralazine 10mg ONCE. Order read back and verified. Will carry out and continue to monitor.
[2019-09-16] MEDS: HYDROcodone-ACET 5/325MG TAB PO PRN ×3 (01:34→22:49)
--- NOTE | 2019-09-16 01:34 | NUR ---
Pain Patient complaining of back pain 5/10. Will administer pain medication per MD order.
--- NOTE | 2019-09-16 02:32 | NUR ---
Pain reassessment Patient asleep at this time. Will continue to monitor and reassess.
[2019-09-16 02:55] VITALS: BP 135/63
--- NOTE | 2019-09-16 02:57 | NUR ---
Blood pressure reassessment and pain Blood pressure reassessment 135/63. Patient complains of headache /, states she does not want pain medication. Repositioned for comfort, will continue to monitor.
[2019-09-16 05:00] VITALS: BP 134/70
[2019-09-16 06:07] LABS: Partial Thromboplastin Time 27.4 sec (23.64-32.05)
--- NOTE | 2019-09-16 07:00 | NUR ---
Opening Shift Note: Assumed care of patient, awake and alert. No S/S of distress/SOB or pain. bed in lowest locked position, side rails up x 2, call light within reach. Patient instructed on POC and to call for assist PRN, will continue to monitor for changes Q1hr and PRN.
--- NOTE | 2019-09-16 08:00 | NUR ---
Patient transported to phlebotomist lab assistant. No S/S of distress at this time.
[2019-09-16] MEDS ORDERED: IOHEXOL 350 MG/ML 100ML IJ ONE ×2 (08:02→09:05)
[2019-09-16] MEDS ORDERED: LIDOCAINE 2%HCL (LOCAL ANESTH.) INJ 20ML MDV ONE (08:02)
[2019-09-16] MEDS ORDERED: MIDAZOLAM HCL 1MG/1ML-2 ML VIAL ONE (08:35)
[2019-09-16] MEDS ORDERED: fentaNYL CITRATE 100 MCG/2 ML VL ONE (08:35)
[2019-09-16] MEDS ORDERED: ANGIOMAX 250 MG VIAL IV ONE (08:35)
[2019-09-16] MEDS ORDERED: SODIUM CHL 0.9% 50 ML ONE (08:36)
[2019-09-16 08:56] VITALS: BP 145/78
[2019-09-16] MEDS ORDERED: NITROGLYCERIN 0.4MG/DOSE SPRAY 4.9GM ONE (08:59)
[2019-09-16] MEDS ORDERED: CLOPIDOGREL BISULFATE 75 MG TAB ONE (09:11)
[2019-09-16] MEDS ORDERED: ASPirin 81 mg TAB ONE (09:11)
[2019-09-16] MEDS ORDERED: SODIUM CHL 0.9% 500 ML IV ONE (09:30)
[2019-09-16] MEDS: ASPirin 81 mg TAB PO SCH (09:35)
[2019-09-16] MEDS: ATENOLOL 25 MG TAB PO SCH ×2 (10:00→22:00)
[2019-09-16] MEDS: ENOXAPARIN SOD 100 MG/1 ML SYRINGE SC SCH ×2 (10:00→22:00)
[2019-09-16] MEDS: CLOPIDOGREL BISULFATE 75 MG TAB PO SCH (10:00)
--- NOTE | 2019-09-16 10:11 | NUR ---
Patient back to unit from cathead operator. Vital signs stable- BP 150/74. HR- 57. RR- 14. Access site assessed. No hematoma noted.
[2019-09-16] MEDS: PANTOPRAZOLE 40 MG TAB PO SCH ×2 (10:25→22:01)
[2019-09-16] MEDS: amLODIPine BESYLATE 5 MG TAB PO SCH (10:25)
[2019-09-16] MEDS: LISINOPRIL 20 MG TAB PO SCH ×2 (10:26→22:00)
--- NOTE | 2019-09-16 11:04 | NUR ---
ACCESS SITE ASSESSED. NO HEMATOMAS NOTED.
--- NOTE | 2019-09-16 12:25 | NUR ---
DR JACKSON: DR. GARCIA AT BEDSIDE. DISCUSSED POC WITH PATIENT. PATIENT VERBALLY AGREED.
[2019-09-16 12:47] VITALS: BP 155/76
[2019-09-16] MEDS: SODIUM CHLORIDE 0.9% 1,000 ML IV SCH (12:58)
--- NOTE | 2019-09-16 13:28 | NUR ---
BLOOD PRESSURE: 156/80. DR. GARCIA NOTIFIED. NEW ORDERS RECEIVED, READ BACK AND VERIFIED. PER DR. GARCIA "IF DR. GONZÁLES CLEARS HER SHE IS DISCHARGED."
[2019-09-16] MEDS ORDERED: cloNIDine HCL 0.1 MG TAB PO ONE (13:30)
--- NOTE | 2019-09-16 13:30 | NUR ---
ACCESS SITE ASSESSED AT THIS TIME. NO HEMATOMA NOTED.
--- NOTE | 2019-09-16 13:33 | NUR ---
PAIN PATIENT STATES PAIN LEVEL 5-6 OUT OF 10. PATIENT REQUEST NORCO AT THIS TIME.
--- NOTE | 2019-09-16 14:33 | NUR ---
PAIN REASSESSMENT PATIENT STATES NO PAIN AT THIS TIME.
--- NOTE | 2019-09-16 15:03 | NUR ---
DONNA GONZÁLES AT THIS TIME. Addendum: 09/16/19 at 1554 by CATHRYN CAMPOS RN RN SPOKE WITH ELIECER. PER ELIECER "KEEP PATIENT OVER NIGHT FOR OBSERVATION."
--- NOTE | 2019-09-16 15:55 | NUR ---
SPOKE WITH DR. GARCIA REGARDING DR. GONZÁLES KEEPING PATIENT OVERNIGHT FOR OBSERVATION.
[2019-09-16 17:03] VITALS: BP 107/57
--- NOTE | 2019-09-16 17:07 | NUR ---
ACCESS SITE ASSESSED AT THIS TIME. NO HEMATOMA OR BLEEDING NOTED.
--- NOTE | 2019-09-16 19:16 | NUR ---
CLOSING NOTE: PATIENT RESTING IN BED. NO S/S OF PAIN, DISTRESS OR SOB AT THIS TIME. CARE ENDORSED TO NOC RN.
[2019-09-16] MEDS: ATORVASTATIN 20 MG TAB PO SCH (21:59)
[2019-09-16 22:00] VITALS: BP 135/62
[2019-09-17 02:00] VITALS: BP 132/53
[2019-09-17] MEDS: SODIUM CHLORIDE 0.9% 1,000 ML IV SCH (02:35)
[2019-09-17 05:00] VITALS: BP 146/66
[2019-09-17 08:00] VITALS: BP 151/76
[2019-09-17] MEDS: ASPirin 81 mg TAB PO SCH (08:51)
[2019-09-17] MEDS: HYDROcodone-ACET 5/325MG TAB PO PRN (08:52)
[2019-09-17] MEDS: PANTOPRAZOLE 40 MG TAB PO SCH (08:52)
[2019-09-17] MEDS: CLOPIDOGREL BISULFATE 75 MG TAB PO SCH (08:52)
[2019-09-17] MEDS: amLODIPine BESYLATE 5 MG TAB PO SCH (08:53)
[2019-09-17] MEDS: LISINOPRIL 20 MG TAB PO SCH (08:53)
[2019-09-17] MEDS: ATENOLOL 25 MG TAB PO SCH (08:53)
[2019-09-17] MEDS: ENOXAPARIN SOD 100 MG/1 ML SYRINGE SC SCH (08:53)
[2019-09-17 11:30] VITALS: BP 151/76
[2019-09-17 12:00] VITALS: BP 150/76
--- NOTE | 2019-09-17 13:23 | NUR ---
DISCHARGE Discharge instructions given as ordered. Encourage to follow up with PMD at [place]. All questions and concerns addressed. Patient verbalized understanding. IV removed with catheter intact, pressure dressing applied. Telemetry unit returned to ICU.
--- NOTE | 2019-09-17 13:38 | NUR ---
TELE MONITOR TELL BOX #[id number] BACK TO ICU. GENERAL PRODUCTION MANAGER CHLOE MADE AWARE.
--- NOTE | 2019-09-17 14:04 | NUR ---
Patient taken to vehicle via wheelchair with all personal belongings, accompanied by staff and family member. No distress noted at time of departure.
== END 2019-09-17 14:04 | disposition home or self-care (01) | DRG 246 ==
LOC: EDBD 21:36 → ER 21:39 → TELE 21:40 → TELE-WESTW 09-13 06:43
PROVIDERS: ADMIT Nurse Practitioner; ATTEND Family Medicine
PROC: 027034Z Dilation of Coronary Artery, One Artery with Drug-eluting Intraluminal Device, Percutaneous Approach (ICD-10-PCS; principal; 2019-09-16)
PROC: B2111ZZ Fluoroscopy of Multiple Coronary Arteries using Low Osmolar Contrast (ICD-10-PCS; 2019-09-16)
PROC: 4A023N7 Measurement of Cardiac Sampling and Pressure, Left Heart, Percutaneous Approach (ICD-10-PCS; 2019-09-16)
PROC: B2151ZZ Fluoroscopy of Left Heart using Low Osmolar Contrast (ICD-10-PCS; 2019-09-16)
DX: I21.4 Non-ST elevation (NSTEMI) myocardial infarction (principal); I50.33 Acute on chronic diastolic (congestive) heart failure; K55.1 Chronic vascular disorders of intestine; T82.898A Other specified complication of vascular prosthetic devices, implants and grafts, initial encounter; I25.10 Atherosclerotic heart disease of native coronary artery without angina pectoris; M54.6 Pain in thoracic spine; E78.00 Pure hypercholesterolemia, unspecified; I35.1 Nonrheumatic aortic (valve) insufficiency; I70.1 Atherosclerosis of renal artery; Z88.0 Allergy status to penicillin; Z88.8 Allergy status to other drugs, medicaments and biological substances; K76.89 Other specified diseases of liver; M54.5 Low back pain; R79.89 Other specified abnormal findings of blood chemistry; Z79.82 Long term (current) use of aspirin; Z79.899 Other long term (current) drug therapy; Z95.1 Presence of aortocoronary bypass graft; Y83.8 Other surgical procedures as the cause of abnormal reaction of the patient, or of later complication, without mention of misadventure at the time of the procedure; Y92.89 Other specified places as the place of occurrence of the external cause; I11.0 Hypertensive heart disease with heart failure
CPT/HCPCS: 36415; 71045; 71275; 72128; 76705; 80048; 80053; 82150; 83690; 83735; 83880; 84484; 85025; 85379; 85610; 85730; 92928; 93005; 93306; 93458; 96372; 99152; C1874; G0378; J2250